=== PATIENT | male | born 1970 | race Caucasian/White ===

== ENCOUNTER → 2019-12-10 10:54 | Outpatient (BNVA) | payer OTHER, BC, SELFPAY | PROVIDERS: Family Provider Nurse Practitioner Family; PCP Nurse Practitioner Family; Visit Provider Nurse Practitioner Family | DX: J06.9 Acute upper respiratory infection, unspecified (principal); R50.9 Fever, unspecified; R19.7 Diarrhea, unspecified; Z20.828 Contact with and (suspected) exposure to other viral communicable diseases | CPT/HCPCS: 87400; 87635 ==

== ENCOUNTER 2023-09-24 10:49 | Emergency (ER) | payer OTHER, MEDICAID, SELFPAY ==
[2023-09-24 10:55] VITALS: BP 116/78; PULSE 101; RESP 18; TEMP 36.3; O2SAT 96; BMI 28.7
--- NOTE | 2023-09-24 11:16 | CT_ITS ---
WS: [id number] CT CHEST TECHNIQUE: Contrast enhanced CT of the chest with coronal and sagittal reformatted images. CLINICAL INFORMATION: fall COMPARISON: None. DLP: 556.[address] scans at [facility] use at least one of these dose optimization techniques: automated e xposure control; mA and/or kV adjustment per patient size (includes targeted exams where dose is matc hed to clinical indication); or iterative reconstruction. FINDINGS: Nondisplaced fracture LEFT posterior eighth rib, slightly displaced fractures LEFT posterior seventh rib and sixth rib Nondisplaced fracture of the RIGHT lateral seventh rib Normal caliber thoracic aorta. Proximal main pulmonary arteries appear normal. No mediastinal or mora r lymphadenopathy. No axillary lymphadenopathy. No pneumothorax. Lungs are well aerated. Slight bibas ilar atelectasis. Mild thoracic curve. Nodular thyroid isthmus. This could be followed up with ultras ound. Adrenal glands are normal. Diffuse fatty infiltration of the liver. Fluid distended gallbladder. Flui d distended stomach with air-fluid level. IMPRESSION: 1. Nondisplaced fracture LEFT posterior eighth rib, slightly displaced fractures LEFT posterior sev enth rib and sixth rib 2. No pneumothorax. 3. Nondisplaced fracture of the RIGHT lateral seventh rib 4. Nodular thyroid is demonstrated to be followed up with ultrasound on an outpatient basis. Notified Silas Grace MD at 09/24/2023 12:04 PM.
--- NOTE | 2023-09-24 11:16 | ED_ITS ---
HPI - Fall General: Chief Complaint: Fall Stated Complaint: fall, back pains Time Seen by Provider: 09/24/23 11:03 Source: patient Mode of arrival: ambulatory Limitations: no limitations History of Present Illness: 53-year-old male who states that he went to the bathroom this morning at 4 AM slipped in some water and landed on his back. He states he is having pain to his left posterior upper back states he was unable to stand due to the pain he did take a hydrocodone of his 's been able to ambulate some since then but still having pain he denies hitting his head denies any neck pain denies any lower back or hip pain Associated symptoms-after fall: Denies abdominal pain, chest pain, headache(s) or neck pain Review of Systems Const: Denies: fever(s), chills, body aches or change in appetite ENMT: Denies: throat pain or dental pain Card: Denies: chest pain Resp: Denies: dyspnea GI: Denies: abdominal pain, nausea, vomiting or diarrhea Musc: Reports: back pain; Denies: neck pain Skin/Breast: Denies: rash Neuro: Denies: headache(s) [facility] ED PFSH: Social History Lives independently: Yes Household members: spouse Marital status: Physical Exam Const: COMMON NORMALS: no acute distress, patient oriented x3 and healthy appearing HENMT: COMMON NORMALS: normocephalic and atraumatic HEAD & SCALP: normocephalic and atraumatic Neck/C-Spine: COMMON NORMALS: full ROM and supple CERVICAL SPINE: No pain with cervical ROM and No Cervical spine tenderness Chest: COMMONS NORMALS: normal inspection of the chest and normal palpation of entire chest wall Resp: COMMON NORMALS: normal respiratory effort, No retractions, No use of acc essory muscles and clear to auscultation bilaterally AUSCULTATION: clear to auscultation bilaterally Cardio: COMMON NORMALS: regular rate, regular rhythm and No murmurs present (Cardio) RATE: regular rate RHYTHM: regular rhythm GI: COMMON NORMALS: Normal to inspection, nondistended, normoactive bowel sounds present, Soft to palpation, non-tender and no masses PALPATION: Yes Soft to palpation Back/Pelvis: OTHER: Tenderness noted to left upper back no midline tenderness Extremity: COMMON NORMALS: normal to inspection and full ROM Neuro: COMMON NORMALS: patient oriented x3, moves all extremities and no focal motor deficits Psych: COMMON NORMALS: mental status grossly normal, Normal thought process present and cooperative THOUGHT PROCESS: Normal thought process present Skin: COMMON NORMALS: no rashes or lesions noted and no wounds GENERAL SKIN EXAM: no rashes or lesions noted Course Vital Signs: Vital signs: Vital Signs Temperature 97.4 F L 09/24/23 10:55 Pulse Rate 101 H 09/24/23 10:55 Respiratory Rate 17 09/24/23 11:45 Blood Pressure 116/78 09/24/23 10:55 Pulse Oximetry 93 09/24/23 11:45 Oxygen Delivery Me thod Room Air 09/24/23 10:55 MDM - Fall Medical Decision Making Patient presents here with posterior rib fractures from a fall no signs of pneumothorax did place him on incentive spirometer will prescribe pain meds he is to follow-up with PCP and return if worsening. Medical Records I reviewed the patient's medical records. All radiology interpretation(s) finalized by discharge Discharge Plan Discharge Patient Disposition: Home Clinical Impression: Fall Fracture of rib Qualifiers: Encounter type: initial encounter Rib fracture type: multiple ribs Fracture type: closed Laterality: left Qualified Code(s): S22.42XA - Multiple fractures of ribs, left side, initial encounter for closed fracture Condition: Stable Prescriptions: New hydrocodone-acetaminophen 5-325 mg tablet 1 tab PO Q6H PRN (Reason: pain) Qty: 14 0RF No Action lisinopril 10 mg tablet 20 mg PO QAM oxycodone-acetaminophen 5-325 mg Tablet 1 - 2 tab PO Q4H PRN (Reason: Pain) multivitamin Tablet 1 tab PO DAILY Discharge Orders: Discharge ED (Routine); Ordered 09/24/23 Ordered By: Silas Grace Referrals: Kellee Pond APN [Primary Care Provider] - 4-7 days Discharge Diet: Advance as tolerated Discharge Activity: Resume usual activity Patient Instructions: Rib Fracture (ED) Coding Level of Care Code ED [employer] for [employer] [facility]
[2023-09-24] MEDS: iohexol 350 mg/mL 500 mL Btl (per mL) IV (11:33)
[2023-09-24 11:45] VITALS: RESP 17; O2SAT 93
[2023-09-24] MEDS: morphine 4 mg/mL SDV 1 mL IVP (11:45)
[2023-09-24] MEDS: ondansetron 2 mg/ML SDV 2 mL 4 MG IVP (11:45)
[2023-09-24] MEDS: sodium chloride 0.9% 1,000 ML 999 ML IV (11:45)
== END 2023-09-24 13:50 | disposition home or self-care (01) ==
PROVIDERS: Emergency Provider Emergency Medicine; PCP Nurse Practitioner Family
DX: S22.42XA Multiple fractures of ribs, left side, initial encounter for closed fracture (principal); W01.0XXA Fall on same level from slipping, tripping and stumbling without subsequent striking against object, initial encounter
CPT/HCPCS: 71260; 96374; 96375; 99285; J2270; J2405; J7030; Q9967